=== PATIENT | male | born 1960 | race American Indian/Alaskan Native ===

== ENCOUNTER 2021-09-09 11:40 | Emergency (ER) | payer OTHER ==
[2021-09-09 12:00] VITALS: BP 154/78
--- NOTE | 2021-09-09 12:10 | Emergency Department Report ---
Upper Extremity - HPI Chief Complaint: Shoulder Injury Stated Complaint: LEFT SHOULDER AND BACK PAIN Occurred When: 3 Days Mechanism: Unsure Severity: moderate Symptoms: Yes Pain with Movement, No Deformity, No Limited Range of Movement, No Numbness, No Weakness, No Swelling, No Bruising/Ecchymosis, No Laceration or Abrasion Other History: 60-year-old -[place] male with no past medical history presents to emergency room stating he thinks he may have injured his left shoulder while at work on Friday. He is unsure of the injury. States that he has left upper shoulder and left arm pain. Denies any swelling denies any injury. States he took Tylenol last night and this morning. Patient states that he works at [employer] expressed lifting heavy boxes. He denies any chest pain no shortness of breathing no nausea no vomiting. It was noted that patient had mildly elevated blood pressure 154/78 and does not have a history. He does not go to any doctors. Other vital signs are within normal limits. ED Review of Systems ROS: Stated complaint: LEFT SHOULDER AND BACK PAIN Other details as noted in HPI Comment: All other systems reviewed and negative Upper Extremity Exam - Exam General: Vital signs noted. No distress. Alert and acting appropriately. Head and Torso: No HEENT Abnormality, No Neck Tenderness, No Chest/Lungs Abnormality, No Abdominal Tenderness, No Back Tenderness Shoulder Exam: Yes Normal Range of Motion in Shoulder, No Shoulder Tenderness, No Clavicle Tenderness, No Shoulder Deformity, No AC Joint Tenderness Arm Exam: No Arm/Humerus Tenderness, No Arm Deformity Elbow: Yes Normal Range of Motion in Elbow, No Elbow Tenderness, No Elbow Deformity Forearm: No Forearm Tenderness, No Forearm Deformity, No Pain with Pronation, No Pain with Supination Wrist: Yes Normal ROM in Wrist, No Wrist Tenderness, No Wrist Deformity, No Snuffbox Tenderness, No Pain with Axial Thumb Compression Hand: Yes Normal ROM in Digit(s), No Hand Tenderness, No Hand Deformity, No Digit Tenderness, No Digit(s) Deformity, No Tendon Dysfunction CMS Exam: No Broken Skin, No Normal Distal Pulses, No Normal Capillary Refill, No Normal Distal Sensation ED Course Vital Signs 09/09/21 11:59 Temperature 97.4 F L Pulse Rate 72 Respiratory 16 Rate Blood Pressure 154/78 [Left] O2 Sat by Pulse 99 Oximetry ED Medical Decision Making - Medical Decision Making 60-year-old -[place] male with no past medical history presents to emergency room stating he thinks he may have injured his left shoulder while at work on Friday. He is unsure of the injury. States that he has left upper shoulder and left arm pain. Denies any swelling denies any injury. States he took Tylenol last night and this morning. Patient states that he works at [employer] expressed lifting heavy boxes. He denies any chest pain no shortness of breathing no nausea no vomiting. It was noted that patient had mildly elevated blood pressure 154/78 and does not have a history. He does not go to any doctors. Other vital signs are within normal limits. EKG is nonactionable. Patient has no obvious deformity full range of motion no tenderness to touch. Patient is stable to be discharged home with follow-up with her primary care provider. Critical care attestation.: If time is entered above; I have spent that time in minutes in the direct care of this critically ill patient, excluding procedure time. ED Disposition Clinical Impression: Strain of left levator scapulae muscle Disposition: HOME / SELF CARE / HOMELESS Is pt being admited?: No Does the pt Need Aspirin: No Condition: Stable Instructions: Muscle Strain, [id number] Additional Instructions: EKG is nonactionable. I recommend Tylenol ibuprofen for muscle strain is important to follow-up with a primary care provider for further evaluation. Referrals: PRIMARY CARE, [Primary Care Provider] - 3-5 Days VERNON LI MD [Staff Physician] - 3-5 Days BERNARD SARAVIA MD [Staff Physician] - 3-5 Days Forms: Work/School Release Form(ED) Time of Disposition: 13:36
--- NOTE | 2021-09-10 08:57 | Electrocardiograph Report ---
[facility] Test Date: 2021-09-09 Test Time: 12:04:56 Pat Name: FABIOLA LR Department: Room: Gender: M Material Handling Equipment Stevedore: Nathaniel CAMPBELL RN : 1960 Requested By: MELO RODRIGUEZ Order Number: [id number] Reading MD: Miguel Randhawa Measurements Intervals Hugo Rate: 63 P: 72 WV: 135 QRS: 38 QRSD: 87 T: -12 QT: 387 QTc: 398 Interpretive Statements Sinus rhythm Consider left ventricular hypertrophy Nonspecific T abnormalities, diffuse leads No previous ECG available for comparison Electronically Signed On 09-10-2021 8:57:16 EST by Miguel Randhawa
== END 2021-09-09 13:54 | disposition home or self-care (01) ==
LOC: ED 11:40
DX: S46.812A Strain of other muscles, fascia and tendons at shoulder and upper arm level, left arm, initial encounter (principal); X50.0XXA Overexertion from strenuous movement or load, initial encounter; Y93.89 Activity, other specified; Y92.89 Other specified places as the place of occurrence of the external cause; Y99.9 Unspecified external cause status
CPT/HCPCS: 93005; 99282